=== PATIENT | male | born 1950 | race Caucasian/White ===

== ENCOUNTER 2018-04-03 09:37 | Emergency (ER) | payer OTHER ==
[~2018-04-03] VITALS: Ht 188 cm; Wt 104.3 kg
[~2018-04-03 09:37] MED LIST: ALPR1 PO; AMLO5 PO; ASPI81CH PO; BENTYL10 MG PO; CHOL10002; CYAN100 PO; Co Q-10300 MG PO; DIAZ10 PO; FISH1000 PO; HYDACE10B; HYDACE10B PO; HYDACE5; HYDACE5 PO; HYDCHL12.5 PO; HYDMOR8 PO; HYDR1TAB94 PO; LISI20 PO; MULVITMIND PO; NEBI10 PO; NEBI5 PO; ONDA4ODT SL; ONDA8 PO; OXYACE5T PO; PROM25 PO; Percocet 5-3251 EACH PO; SILD25T PO; TRAM50 PO; VALS80; VITAMIN D PO; Vitamin B-121000 MCG PO; ZINC15 PO
[2018-04-03 10:30] LABS: BASOPHILS ABSOLUTE AUTO 0.04 K/mm3 (0.00-0.23); BASOPHILS PERCENT AUTO 1 % (0-2); EOSINOPHILS ABSOLUTE AUTO 0.06 K/mm3 (0.00-0.68); EOSINOPHILS PERCENT AUTO 1 % (0-6); Hematocrit 44.8 % (37.0-53.0); Hemoglobin 15.4 g/dL (13.5-17.5); IMMATURE GRAN ABSOLUTE AUTO 0.03 K/mm3 (0.00-0.10); IMMATURE GRAN PERCENT AUTO 0 % (0-1); LYMPHOCYTES ABSOLUTE AUTO 0.86 K/mm3 (0.84-5.20); LYMPHOCYTES PERCENT AUTO 10 % (21-46); MONOCYTES PERCENT AUTO 6 % (4-13); Mean Corpuscular HGB 30.9 pg (26.0-34.0); Mean Corpuscular HGB Conc 34.4 g/dL (31.5-36.5); Mean Corpuscular Volume 90 fL (80-100); Mean Platelet Volume 9.3 fL (9.1-12.4); NEUTROPHILS PERCENT AUTO 82 % (41-73); Platelet Count 160 K/mm3 (150-400); RDW Coefficient Variation 12.8 % (11.7-14.2); Red Blood Cell Count 4.98 M/mm3 (4.30-5.90); White Blood Cell Count 8.29 K/mm3 (4.00-11.30)
[2018-04-03 10:49] LABS: Alanine Aminotransfer (ALT/SGP 28 U/L (12-78); Albumin/Globulin Ratio 1.1 (0.8-1.8); Alk Phos 116 U/L (50-136); Anion Gap 9 mmol/L (6-16); Aspartate Aminotrans (AST/SGOT 20 U/L (12-37); Bilirubin, Total 0.5 mg/dL (0.1-1.0); Blood Urea Nitrogen 12 mg/dL (8-24); Bun/Creatinine Ratio 17.3 (12.0-20.0); CO2, Blood 25 mmol/L (21-32); Calcium, Blood 8.9 mg/dL (8.5-10.1); Chloride, Blood 104 mmol/L (98-108); Globulin, Blood 3.6 g/dL (2.2-4.0); Glomerular Filtration Rate >60 (60-); Glucose, Blood 142 mg/dL (70-99); Sodium, Blood 138 mmol/L (136-145); Total Protein, Blood 7.6 g/dL (6.4-8.2); Troponin I <0.015 ng/mL (0.000-0.040)
== END 2018-04-03 13:00 | disposition home or self-care (01) ==
LOC: ER 09:37
PROVIDERS: Emergency Medicine
DX: R10.84 Generalized abdominal pain (principal); R11.2 Nausea with vomiting, unspecified; Z79.899 Other long term (current) drug therapy; Z79.82 Long term (current) use of aspirin
CPT/HCPCS: 36415; 80053; 83690; 84484; 85025; J1630; J1885; J2405; J2765; J3010; J7030

== ENCOUNTER 2020-12-10 12:14 | Day surgery (SDC) | payer OTHER ==
[~2020-12-10] VITALS: Ht 188 cm; Wt 120.0 kg
[~2020-12-10 12:14] MED LIST changes: +AMIT25 PO; +Aspir 8181 MG PO; +COENZYME Q10100 MG PO; +HYDCHL25 PO; +VITAMIN D31000 UNIT PO; +Zofran Odt4 MG SL
== END 2020-12-10 14:41 | disposition home or self-care (01) ==
LOC: ORSCSDS 12:14
DX: Z12.11 Encounter for screening for malignant neoplasm of colon (principal); D12.2 Benign neoplasm of ascending colon; D12.4 Benign neoplasm of descending colon; D12.5 Benign neoplasm of sigmoid colon; K57.30 Diverticulosis of large intestine without perforation or abscess without bleeding; K64.8 Other hemorrhoids; Z86.010 Personal history of colon polyps; Z87.891 Personal history of nicotine dependence; G47.33 Obstructive sleep apnea (adult) (pediatric); I25.10 Atherosclerotic heart disease of native coronary artery without angina pectoris; Z95.810 Presence of automatic (implantable) cardiac defibrillator; I10 Essential (primary) hypertension; Z79.82 Long term (current) use of aspirin; Z79.899 Other long term (current) drug therapy
CPT/HCPCS: 88305; J2250; J2704; J7120

== ENCOUNTER 2023-08-02 00:02 | Day surgery (SDC) | payer OTHER ==
[2023-07-31 15:59] LABS: BASOPHILS ABSOLUTE AUTO 0.02 K/mm3 (0.00-0.23); BASOPHILS PERCENT AUTO 0 % (0-2); EOSINOPHILS ABSOLUTE AUTO 0.06 K/mm3 (0.00-0.68); EOSINOPHILS PERCENT AUTO 1 % (0-6); Hematocrit 25.9 % (37.0-53.0); Hemoglobin 7.5 g/dL (13.5-17.5); IMMATURE GRAN ABSOLUTE AUTO 0.02 K/mm3 (0.00-0.10); IMMATURE GRAN PERCENT AUTO 0 % (0-1); LYMPHOCYTES ABSOLUTE AUTO 0.93 K/mm3 (0.84-5.20); LYMPHOCYTES PERCENT AUTO 14 % (21-46); MONOCYTES ABSOLUTE AUTO 0.56 K/mm3 (0.16-1.47); MONOCYTES PERCENT AUTO 9 % (4-13); Mean Corpuscular HGB 21.9 pg (26.0-34.0); Mean Corpuscular Volume 76 fL (80-100); Mean Platelet Volume 10.6 fL (9.1-12.4); NEUTROPHILS ABSOLUTE AUTO 4.97 K/mm3 (1.96-9.15); NEUTROPHILS PERCENT AUTO 76 % (41-73); Platelet Count 184 K/mm3 (150-400); RDW Coefficient Variation 16.5 % (11.7-14.2); Red Blood Cell Count 3.42 M/mm3 (4.30-5.90); White Blood Cell Count 6.56 K/mm3 (4.00-11.30)
[~2023-08-02 00:02] MED LIST changes: +CYCL10 PO; +K-Dur20 MEQ PO; +LIVALO4 MG PO; +METF500 PO; +NITR.4SL SL; +Norco 5-325 Ta1 EACH PO; +OMEP20ER PO; +TORSE20 PO; +XARELTO20 MG PO
[2023-08-02] MEDS ORDERED: FERSU300 PO (07:52)
[2023-08-02 08:39] VITALS: BP 135/80
[2023-08-02 08:58] VITALS: BP 122/58
[2023-08-02 10:00] VITALS: BP 110/49
[2023-08-02 10:51] VITALS: BP 124/63
== END 2023-08-02 10:55 | disposition home or self-care (01) ==
LOC: ATC 00:02
PROVIDERS: Physician Assistant
DX: D50.0 Iron deficiency anemia secondary to blood loss (chronic) (principal)
CPT/HCPCS: 36415; 36430; 85025; 86850; 86900; 86901; 86923; A9270; J7050; P9016

== ENCOUNTER 2023-11-19 07:21 | Day surgery (SDC) | payer OTHER ==
[~2023-11-19] VITALS: Ht 188 cm; Wt 116.6 kg
[2023-11-19] VITALS (24 sets, daily range): BP systolic 101–164; BP diastolic 55–99
[~2023-11-19 07:21] MED LIST changes: +ELIQUIS5 M2 PO; +FERSU300 PO; +Lactated Ringer's 1,000 ML IV SCH
--- NOTE | 2023-11-19 07:50 | NUR ---
PT TO DAY SURGERY FOR COLONOSCOPY. CHART HISTORY REVIEWED. PLAN OF CARE DISCUSSED WITH PT. QUESTIONS ANSWSERED.
[2023-11-19] MEDS ORDERED: Hair, Skin & N1 EACH PO (07:51)
[2023-11-19] MEDS ORDERED: propofoL 60 ML IV ONE (08:50)
--- NOTE | 2023-11-19 09:11 | NUR ---
11/19/23 0911 Avis Vargas HISTORY, CHART, MEDICATIONS AND ALLERGIES REVIEWED BEFORE START OF PROCEDURE. PATIENT CONFIRMS NPO STATUS AND AGREES WITH SCHEDULED PROCEDURE. 3-LEAD EKG REVIEWED WITH PHYSICIAN PRIOR TO START OF PROCEDURE. MONITOR INTACT WITH CONTINUOUS PULSE OXIMETRY,CAPNOGRAPHY, 3-LEAD EKG, INTERMITTENT BP. SUPPLEMENTAL O2 TO BE TITRATED THROUGHOUT PROCEDURE TO MAINTAIN O2 SATURATION ABOVE 90%.
== END 2023-11-19 10:15 | disposition home or self-care (01) ==
LOC: ORSCMMR 07:21 → ORD 09:00 → ORSCMMR 10:15
PROVIDERS: Internal Medicine Gastroenterology
PROC: 0DBH8ZX Excision of Cecum, Via Natural or Artificial Opening Endoscopic, Diagnostic (ICD-10-PCS; principal; 2023-11-19 09:00)
PROC: 0DBL8ZX Excision of Transverse Colon, Via Natural or Artificial Opening Endoscopic, Diagnostic (ICD-10-PCS; principal; 2023-11-19 09:00)
PROC: 0DBN8ZX Excision of Sigmoid Colon, Via Natural or Artificial Opening Endoscopic, Diagnostic (ICD-10-PCS; principal; 2023-11-19 09:00)
PROC: 0DBM8ZX Excision of Descending Colon, Via Natural or Artificial Opening Endoscopic, Diagnostic (ICD-10-PCS; principal; 2023-11-19 09:00)
DX: D50.0 Iron deficiency anemia secondary to blood loss (chronic) (principal); Z86.010 Personal history of colon polyps; D12.3 Benign neoplasm of transverse colon; D12.4 Benign neoplasm of descending colon; K63.5 Polyp of colon; I48.0 Paroxysmal atrial fibrillation; R11.15 Cyclical vomiting syndrome unrelated to migraine; I10 Essential (primary) hypertension; Z95.0 Presence of cardiac pacemaker; K22.70 Barrett's esophagus without dysplasia; I25.10 Atherosclerotic heart disease of native coronary artery without angina pectoris; G47.33 Obstructive sleep apnea (adult) (pediatric); I65.29 Occlusion and stenosis of unspecified carotid artery; E11.9 Type 2 diabetes mellitus without complications; Z79.01 Long term (current) use of anticoagulants; Z79.899 Other long term (current) drug therapy
CPT/HCPCS: 82947; 88305; J2704; J7120

== ENCOUNTER 2023-12-27 14:02 | Emergency (ER) | payer OTHER ==
[~2023-12-27] VITALS: Ht 188 cm; Wt 113.4 kg
[~2023-12-27 14:02] MED LIST changes: +Hair, Skin & N1 EACH PO; -Lactated Ringer's 1,000 ML IV SCH
[2023-12-27 15:08] LABS: BASOPHILS ABSOLUTE AUTO 0.04 K/mm3 (0.00-0.23); BASOPHILS PERCENT AUTO 1 % (0-2); EOSINOPHILS ABSOLUTE AUTO 0.04 K/mm3 (0.00-0.68); EOSINOPHILS PERCENT AUTO 1 % (0-6); Hematocrit 41.7 % (37.0-53.0); Hemoglobin 13.8 g/dL (13.5-17.5); IMMATURE GRAN ABSOLUTE AUTO 0.02 K/mm3 (0.00-0.10); IMMATURE GRAN PERCENT AUTO 0 % (0-1); LYMPHOCYTES ABSOLUTE AUTO 1.14 K/mm3 (0.84-5.20); LYMPHOCYTES PERCENT AUTO 14 % (21-46); MONOCYTES ABSOLUTE AUTO 0.73 K/mm3 (0.16-1.47); MONOCYTES PERCENT AUTO 9 % (4-13); Mean Corpuscular HGB 31.2 pg (26.0-34.0); Mean Corpuscular HGB Conc 33.1 g/dL (31.5-36.5); Mean Corpuscular Volume 94 fL (80-100); Mean Platelet Volume 10.3 fL (9.1-12.4); NEUTROPHILS ABSOLUTE AUTO 6.13 K/mm3 (1.96-9.15); NEUTROPHILS PERCENT AUTO 76 % (41-73); Platelet Count 160 K/mm3 (150-400); RDW Coefficient Variation 14.8 % (11.7-14.2); Red Blood Cell Count 4.43 M/mm3 (4.30-5.90)
[2023-12-27 15:35] LABS: Albumin, Blood 4.1 g/dL (3.4-5.0); Albumin/Globulin Ratio 1.1 (0.8-1.8); Bilirubin, Total 1.8 mg/dL (0.1-1.0); Bun/Creatinine Ratio 20.6 (12.0-20.0); Calcium, Blood 9.5 mg/dL (8.5-10.1); Creatinine, Blood 1.07 mg/dL (0.60-1.20); Globulin, Blood 3.6 g/dL (2.2-4.0); Potassium, Blood 3.6 mmol/L (3.5-5.5); Total Protein, Blood 7.7 g/dL (6.4-8.2)
[2023-12-27] MEDS ORDERED: Etomidate 2MG / ML 10ML Vial IV SCH (16:35)
[2023-12-27] MEDS ORDERED: NS 1,000 ML IV ONE ×2 (16:45→17:53)
[2023-12-27] MEDS ORDERED: Potassium Chloride 20 MEQ TabCR PO ONE (17:25)
[2023-12-27] MEDS ORDERED: Magnesium Sulf 2 GM/Water 50ML 50 ML IV ONE (17:25)
[2023-12-27 19:52] VITALS: BP 116/79
== END 2023-12-27 19:57 | disposition home or self-care (01) ==
LOC: ER 14:02
PROVIDERS: Student in an Organized Health Care Education/Training Program
DX: I48.91 Unspecified atrial fibrillation (principal); I10 Essential (primary) hypertension; E11.9 Type 2 diabetes mellitus without complications; G47.30 Sleep apnea, unspecified; Z87.891 Personal history of nicotine dependence; Z79.82 Long term (current) use of aspirin; Z79.899 Other long term (current) drug therapy; Z79.84 Long term (current) use of oral hypoglycemic drugs; Z88.8 Allergy status to other drugs, medicaments and biological substances
CPT/HCPCS: 71046; 80053; 83880; 84484; 85025; 86850; 86900; 86901; 92960; 93005; 93010; 96365-59; 96366-59; 99152; 99285-25; A9270; J3475; J7030

== ENCOUNTER 2025-04-16 09:15 | Day surgery (SDC) | payer OTHER ==
[~2025-04-16] VITALS: Ht 188 cm; Wt 116.0 kg
[~2025-04-16 09:15] MED LIST changes: +ENTRESTO 24 MG1 EACH PO
[2025-04-16] MEDS ORDERED: NS 1,000 ML IV ONE ×2 (10:18→10:30)
[2025-04-16] MEDS ORDERED: NS 250 ML IV ONE (10:18)
[2025-04-16] MEDS ORDERED: Heparin Sodium 1000 Units/ML 10ML MDV ONE (10:18)
[2025-04-16] MEDS ORDERED: Verapamil HCL 2.5 MG/ML 2ML Injection ONE (10:25)
[2025-04-16] MEDS ORDERED: Nitroglycerin 2 MG/20 ML BTL ONE (10:25)
[2025-04-16] MEDS ORDERED: FentaNYL Citrate 50 MCG/ML 2 ML Injection ONE (10:30)
[2025-04-16] MEDS ORDERED: Midazolam HCl 1MG / ML 2ML Vial ONE (10:30)
[2025-04-16 12:30] VITALS: BP 110/55
[2025-04-16 13:06] VITALS: BP 114/84
[2025-04-16 13:15] VITALS: BP 119/88
--- NOTE | 2025-04-16 13:30 | NUR ---
5CC AIR REMOVE FROM L ULNER TR BAND. NEG BLEEDING OR SWELLING.
--- NOTE | 2025-04-16 13:44 | NUR ---
PT VERBALIZED UNDERSTANDING OF WRITTEN AND VERBAL D/C INST. TR BAND REMOVED AND CLOTH DOT DRSG PLACED. L WRIST SPLINT REAPPLIED. IV REMOVED. PT WILL BE TAKEN OUT OF THE DEPARTMENT VIA W/C.
== END 2025-04-16 15:30 | disposition home or self-care (01) ==
LOC: MHTC 09:15
DX: I11.0 Hypertensive heart disease with heart failure (principal); I50.20 Unspecified systolic (congestive) heart failure; I25.119 Atherosclerotic heart disease of native coronary artery with unspecified angina pectoris; I47.29 Other ventricular tachycardia; Z95.1 Presence of aortocoronary bypass graft; K21.9 Gastro-esophageal reflux disease without esophagitis; I44.7 Left bundle-branch block, unspecified; E78.00 Pure hypercholesterolemia, unspecified; I48.0 Paroxysmal atrial fibrillation; Z88.8 Allergy status to other drugs, medicaments and biological substances; Z79.891 Long term (current) use of opiate analgesic; Z79.01 Long term (current) use of anticoagulants; Z79.899 Other long term (current) drug therapy
CPT/HCPCS: 76937; 93455; C1769; C1887; C1894; J1644; J2250; J3010; J7030; J7050; Q9967